=== PATIENT | male | born 1985 | race Two or more races ===

== ENCOUNTER 2018-05-06 16:54 | Emergency (ER) | payer SELFPAY ==
[~2018-05-06] VITALS: Ht 167.6 cm; Wt 83.9 kg
[2018-05-06 17:28] VITALS: BP 144/87
== END 2018-05-06 20:05 | disposition home or self-care (01) ==
LOC: ER 17:00
DX: M54.2 Cervicalgia (principal); M25.512 Pain in left shoulder; M25.511 Pain in right shoulder; M54.5 Low back pain; M25.532 Pain in left wrist; M25.531 Pain in right wrist; V43.52XA Car driver injured in collision with other type car in traffic accident, initial encounter; Y93.89 Activity, other specified; Y99.8 Other external cause status; Y92.410 Unspecified street and highway as the place of occurrence of the external cause
CPT/HCPCS: 72040; 72070; 72100